=== PATIENT | female | born 1965 | race Caucasian/White ===

== ENCOUNTER 2016-09-22 05:53 | Day surgery (SDC) | payer BC ==
[2016-09-22] MEDS ORDERED: LACTATED RINGERS 1,000 ML IV ONE (06:57)
[2016-09-22] MEDS ORDERED: fentaNYL 250 MCG/5 ML VIAL IVP ONE (07:40)
[2016-09-22] MEDS ORDERED: MIDAZOLAM 2 MG/2 ML VIAL IVP ONE (07:40)
[2016-09-22] MEDS ORDERED: SIMETHICONE 40 MG/0.6 ML 30 ML BOTTLE PO ONE (08:00)
== END 2016-09-22 05:54 | disposition home or self-care (01) ==
PROC: 0DBN8ZX Excision of Sigmoid Colon, Via Natural or Artificial Opening Endoscopic, Diagnostic (ICD-10-PCS; principal; 2016-09-22 07:30)
DX: Z12.11 Encounter for screening for malignant neoplasm of colon (principal); K21.9 Gastro-esophageal reflux disease without esophagitis; K64.4 Residual hemorrhoidal skin tags; D12.5 Benign neoplasm of sigmoid colon; Z83.71 Family history of colonic polyps; F18.90 Inhalant use, unspecified, uncomplicated; Z82.49 Family history of ischemic heart disease and other diseases of the circulatory system; Z80.0 Family history of malignant neoplasm of digestive organs
CPT/HCPCS: 45385; J3010; J7120

== ENCOUNTER → 2017-04-03 | Outpatient (CLI) | payer BC ==
[2017-04-03 13:55] LABS: ALBUMIN/GLOBULIN RATIO 1.3 (1.0-2.2); BILIRUBIN,TOTAL 0.4 mg/dL (0.2-1.0); CALCIUM 9.3 mg/dL (8.5-10.3); CREATININE 0.7 mg/dL (0.4-1.0); TOTAL PROTEIN 7.2 g/dL (6.7-8.2)
[2017-04-03 14:05] LABS: BASOPHILS # (AUTO) 0.1 10^3/uL (0.0-0.1); EOSINOPHILS # (AUTO) 0.1 10^3/uL (0.0-0.7); EOSINOPHILS % (AUTO) 1.5 %; HCT - HEMATOCRIT 36.3 % (37.0-47.0); HGB - HEMOGLOBIN 12.1 g/dL (12.0-16.0); LYMPHOCYTES # (AUTO) 1.8 10^3/uL (1.5-3.5); MEAN CORPUSCULAR HEMOGLOBIN 25.9 pg (27.0-31.0); MEAN CORPUSCULAR HGB CONC 33.3 g/dL (32.0-36.0); MEAN CORPUSCULAR VOLUME 77.8 fL (81.0-99.0); MEAN PLATELET VOLUME 7.8 fL (7.9-10.8); MONOCYTES # (AUTO) 0.6 10^3/uL (0.0-1.0); MONOCYTES % (AUTO) 9.9 %; NEUTROPHILS # (AUTO) 3.8 10^3/uL (1.5-6.6); NEUTROPHILS % (AUTO) 59.6 %; RED BLOOD COUNT 4.67 10^6/uL (4.20-5.40); RED CELL DISTRIBUTION WIDTH 16.2 % (12.0-15.0); UNCORRECTED WHITE BLOOD COUNT 6.4 x10^3/uL; WHITE BLOOD COUNT 6.4 x10^3/uL (4.8-10.8)
== END ==
LOC: LAB.N 08:00
PROVIDERS: ATTEND Nurse Practitioner Gerontology
DX: R10.30 Lower abdominal pain, unspecified (principal)
CPT/HCPCS: 36415; 80053; 85025

== ENCOUNTER 2018-05-08 14:21 | Outpatient (CLI) | payer BC | END 2018-05-08 14:22 | disposition home or self-care (01) | LOC: RT.N 14:21 | PROVIDERS: ATTEND Nurse Practitioner Gerontology | DX: R07.89 Other chest pain (principal) | CPT/HCPCS: 93005 ==

== ENCOUNTER 2018-05-09 08:33 | Outpatient (CLI) | payer BC ==
[2018-05-09 12:54] LABS: BASOPHILS # (AUTO) 0.1 10^3/uL (0.0-0.1); BASOPHILS % (AUTO) 1.1 %; EOSINOPHILS # (AUTO) 0.1 10^3/uL (0.0-0.7); EOSINOPHILS % (AUTO) 1.5 %; HGB - HEMOGLOBIN 12.2 g/dL (12.0-16.0); LYMPHOCYTES # (AUTO) 1.4 10^3/uL (1.5-3.5); LYMPHOCYTES % (AUTO) 27.5 %; MEAN CORPUSCULAR HGB CONC 33.8 g/dL (32.0-36.0); MEAN CORPUSCULAR VOLUME 79.9 fL (81.0-99.0); MEAN PLATELET VOLUME 7.4 fL (7.9-10.8); MONOCYTES # (AUTO) 0.5 10^3/uL (0.0-1.0); NEUTROPHILS # (AUTO) 3.2 10^3/uL (1.5-6.6); NEUTROPHILS % (AUTO) 60.9 %; PLT - PLATELET COUNT 326 10^3/uL (130-450); RED BLOOD COUNT 4.51 10^6/uL (4.20-5.40); WHITE BLOOD COUNT 5.3 x10^3/uL (4.8-10.8)
[2018-05-09 13:15] LABS: ALBUMIN 3.9 g/dL (3.2-5.5); ALBUMIN/GLOBULIN RATIO 1.2 (1.0-2.2); ALKALINE PHOSPHATASE 48 IU/L (42-121); ALT ALANINE AMINOTRANSFERASE 18 IU/L (10-60); AST ASPARTATE AMINOTRANSFERASE 19 IU/L (10-42); BILIRUBIN,TOTAL 0.8 mg/dL (0.2-1.0); BUN - BLOOD UREA NITROGEN 12 mg/dL (6-20); CHOL/HDL RATIO 3.3 (<4.4); CHOLESTEROL 247 mg/dL; CREATININE 0.9 mg/dL (0.4-1.0); GFR - MDRD 65 (>89); HDL CHOLESTEROL 75 mg/dL; LDL CHOLESTEROL,CALCULATED 153 mg/dL; TOTAL PROTEIN 7.2 g/dL (6.7-8.2); VLDL CHOLESTEROL 19 mg/dL
[2018-05-09 14:58] LABS: CALCIUM 9.1 mg/dL (8.5-10.3); CARBON DIOXIDE - CO2 27 mmol/L (21-32); CHLORIDE 102 mmol/L (101-111); GLUCOSE 105 mg/dL (70-100); SODIUM 135 mmol/L (135-145)
== END 2018-05-09 08:34 | disposition home or self-care (01) ==
LOC: LAB.N 08:33
PROVIDERS: ATTEND Nurse Practitioner Gerontology
DX: I10 Essential (primary) hypertension (principal); E78.5 Hyperlipidemia, unspecified; E66.9 Obesity, unspecified
CPT/HCPCS: 36415; 80053; 80061; 83721; 85025

== ENCOUNTER 2018-05-22 08:21 | Outpatient (CLI) | payer BC ==
--- NOTE | 2018-05-24 11:59 | Mammography Report ---
Reason: SCREENING MAMMO Procedure Date: 05/22/2018 Accession Number: [id number] / [id number] Procedure: MGN - Screening Mammo Dig Bilat CPT Code: FULL RESULT: EXAM: Screening Mammo Dig Bilat DATE: 05/22/2018 8:43 AM CLINICAL HISTORY: 52-year-old female for screening. TECHNIQUE: Bilateral CC and MLO views were obtained. COMPARISON: 07/01/2016, 04/12/2010 04/17/2008. FINDINGS: The breasts demonstrate heterogeneously dense fibroglandular parenchyma bilaterally. In the upper right central breast approximately 8 cm deep to the nipple is an increasing focal asymmetry with associated clustered calcifications which requires additional spot imaging preferably with 3-D technique and ultrasound evaluation. Coarse typically benign calcifications are identified. No left breast suspicious masses, clustered microcalcifications, or regions of architectural distortion are identified. IMPRESSION: Incomplete examination RECOMMENDATION: Additional evaluation of the focal right breast finding in the upper posterior breast with spot tomographic technique as well as ultrasound. BIRADS CATEGORY 0: Incomplete examination STANDARD QUALIFYING STATEMENTS: 1. This examination was reviewed with the aid of Computer-Aided Detection (CAD). 2. A negative or benign imaging report should not delay biopsy if clinically suspicious findings are present. Consider surgical consultation if warrented. More than 5% of cancers are not identified by imaging. 3. Dense breasts may obscure an underlying neoplasm. 4. This examination was reviewed without the aid of 3D breast imaging (tomosynthesis).
== END 2018-05-22 08:22 | disposition home or self-care (01) ==
LOC: DI.N 08:21
PROVIDERS: ATTEND Nurse Practitioner Gerontology
DX: Z12.39 Encounter for other screening for malignant neoplasm of breast (principal); R92.8 Other abnormal and inconclusive findings on diagnostic imaging of breast; R92.1 Mammographic calcification found on diagnostic imaging of breast
CPT/HCPCS: 77067

== ENCOUNTER 2018-06-12 13:06 | Outpatient (CLI) | payer BC ==
--- NOTE | 2018-06-12 15:06 | Mammography Report ---
Reason: ABN MAMMO - RT SPEC VIEWS Procedure Date: 06/12/2018 Accession Number: [id number] / [id number] Procedure: VINCE - Diag Special Views Dig RT CPT Code: FULL RESULT: EXAM: Diag Special Views Dig RT DATE: 06/12/2018 2:22 PM CLINICAL HISTORY: 52-year-old female recalled from screening for increasing focal asymmetry associated with previously seen clustered calcifications in the right upper central breast. TECHNIQUE: Right CC, MLO and MLO views were obtained in 2-D and 3-D technique with additional spot magnified CC and spot magnified MLO views of the right breast. COMPARISON: 05/22/2018, 07/01/2016, 04/14/2010. FINDINGS: The breasts demonstrate heterogeneously dense fibroglandular parenchyma bilaterally. The clustered calcifications are stable dating back to 2015. The increasing focal asymmetry resolves with spot magnification and 3-D technique and is identified as overlapping normal breast tissue. No suspicious calcifications, architectural distortion or masses are identified. IMPRESSION: Benign findings RECOMMENDATION: Recommend routine annual Screening mammography unless otherwise clinically indicated. BIRADS CATEGORY 2: Benign findings STANDARD QUALIFYING STATEMENTS: 1. This examination was not reviewed with the aid of Computer-Aided Detection (CAD). 2. A negative or benign imaging report should not delay biopsy if clinically suspicious findings are present. Consider surgical consultation if warrented. More than 5% of cancers are not identified by imaging. 3. Dense breasts may obscure an underlying neoplasm. 4. This examination was reviewed with the aid of 3D imaging (tomography).
== END 2018-06-12 13:07 | disposition home or self-care (01) ==
LOC: DI 13:06
PROVIDERS: ATTEND Nurse Practitioner Gerontology
DX: R92.8 Other abnormal and inconclusive findings on diagnostic imaging of breast (principal)

== ENCOUNTER 2018-06-21 07:12 | Outpatient (CLI) | payer BC ==
--- NOTE | 2018-06-21 11:21 | Ultrasound Report ---
Reason: ABDOMINAL PAIN LUQ Procedure Date: 06/21/2018 Accession Number: [id number] / [id number] Procedure: US - Abdomen Limited CPT Code: FULL RESULT: EXAM: ABDOMEN ULTRASOUND LIMITED, LEFT UPPER QUADRANT EXAM DATE: 06/21/2018 07:37 AM. CLINICAL HISTORY: Abdominal pain in left upper quadrant. COMPARISON: None. TECHNIQUE: Real-time scanning was performed with static images obtained. FINDINGS: The spleen measures up to 10.0 cm in maximal dimension, within normal limits. Echotexture is normal with no mass detected. Color Doppler reveals normal blood flow in the splenic hilar region. Other: Left kidney measures up to 11.9 cm in maximum sagittal dimension with no detected mass, calculi or hydronephrosis. Parenchymal flow is grossly preserved by color Doppler. IMPRESSION: Normal appearance of the spleen and left kidney. RADIA
== END 2018-06-21 07:13 | disposition home or self-care (01) ==
LOC: DI 07:12
PROVIDERS: ATTEND Nurse Practitioner Gerontology
DX: R10.12 Left upper quadrant pain (principal)
CPT/HCPCS: 76705

== ENCOUNTER 2018-11-07 11:54 | Outpatient (CLI) | payer BC ==
--- NOTE | 2018-11-07 14:38 | XRAY Report ---
Reason: KNEE PAIN,LEFT Procedure Date: 11/07/2018 Accession Number: [id number] / [id number] Procedure: XRN - Knee 3 View LT CPT Code: FULL RESULT: EXAM: LEFT KNEE RADIOGRAPHY EXAM DATE: 11/07/2018 12:13 PM. CLINICAL HISTORY: KNEE Pain, left. COMPARISON: None. TECHNIQUE: 3 views. FINDINGS: Bones: No acute abnormality. Minimal patellofemoral osteoarthritis. Joints: Normal. No effusion. No subluxations. Soft Tissues: Normal. No soft tissue swelling. IMPRESSION: 1. No acute osseous abnormality or joint effusion. 2. Minimal patellofemoral osteoarthritis. RADIA
== END 2018-11-07 11:55 | disposition home or self-care (01) ==
LOC: DI.N 11:54
PROVIDERS: ATTEND Family Medicine
DX: M17.11 Unilateral primary osteoarthritis, right knee (principal)

== ENCOUNTER 2019-10-02 16:42 | Outpatient (CLI) | payer BC ==
--- NOTE | 2019-10-03 10:21 | XRAY Report ---
Reason: OSTEOARTHRITIS Procedure Date: 10/02/2019 Accession Number: [id number] / [id number] Procedure: XR - Knee 2 View LT CPT Code: Final Report FULL RESULT: EXAM: LEFT KNEE RADIOGRAPHY EXAM DATE: 10/02/2019 05:01 PM. CLINICAL HISTORY: OSTEOARTHRITIS. COMPARISON: KNEE 3 VIEW LT 11/07/2018 12:14 PM. TECHNIQUE: 2 views. FINDINGS: Bones: Normal. No fractures or bone lesions. Joints: Normal. No effusion. No subluxations. Soft Tissues: Normal. No soft tissue swelling. IMPRESSION: Normal knee radiography. RADIA
== END 2019-10-02 16:43 | disposition home or self-care (01) ==
LOC: DI 16:42
PROVIDERS: ATTEND Nurse Practitioner Gerontology
DX: M19.90 Unspecified osteoarthritis, unspecified site (principal)

== ENCOUNTER 2021-12-08 08:00 | Outpatient (CLI) | payer BC | END 2021-12-09 20:37 | disposition home or self-care (01) | LOC: LAB.N 08:00 | PROVIDERS: ATTEND Registered Nurse | DX: R05.9 Cough, unspecified (principal); R07.0 Pain in throat; Z20.822 Contact with and (suspected) exposure to COVID-19 ==

== ENCOUNTER 2022-05-04 12:57 | Outpatient (CLI) | payer BC ==
--- NOTE | 2022-05-05 09:49 | Mammography Report ---
BILATERAL DIGITAL SCREENING MAMMOGRAM 3D/2D: 05/04/2022 CLINICAL: Routine screening. Comparison is made to exams dated: 02/10/2020 mammogram, 06/12/2018 mammogram, 05/22/2018 mammogram, 07/01/2016 mammogram, and 04/14/2010 mammogram - [facility]. There are scattered areas of fibroglandular density in both breasts (category b / 25%-50% glandular t issue). There is a possible new 0.4 cm oval equal density asymmetry in the left breast posterior depth inferi or region seen on the mediolateral oblique view only. No other significant masses, calcifications, or other findings are seen in either breast. IMPRESSION: INCOMPLETE: NEEDS ADDITIONAL IMAGING EVALUATION The possible new 0.4 cm oval equal density asymmetry in the left breast resembles a cyst and is indet erminate. Additional views with possible ultrasound are recommended. Based on the Tyrer Cuzick model (a risk assessment model) the patients lifetime risk is 9.1% and her 10 year risk is 3.2%. According to the ACR, ACS, and NCCN guidelines, an annual breast MRI exam santiago g with mammogram is recommended if the patients lifetime risk is 20% or greater. This exam was interpreted at Station ID: [id number]. NOTE: For mammograms, a report in lay terms will be sent to the patient. Approximately 15% of breast malignancies will not be visualized mammographically. In the management of a palpable breast mass, a negative mammogram must not discourage biopsy of a clinically suspicious lesion. Electronically Signed By: Lanre Bhatia M.D. aty/:05/05/2022 07:36:17 ACR BI-RADS Category 0: Incomplete 3340F PARENCHYMAL PATTERN: (A) - The breast(s) demonstrate(s) scattered fibroglandular densities. BI-RADS CATEGORY: (0) - 0 Mammo and [place] [id number] Immediate follow-up LATERALITY: (L)
== END 2022-05-04 12:58 | disposition home or self-care (01) ==
LOC: DI.N 12:57
PROVIDERS: ATTEND Nurse Practitioner Family
DX: Z12.31 Encounter for screening mammogram for malignant neoplasm of breast (principal)

== ENCOUNTER 2022-05-27 08:04 | Outpatient (CLI) | payer BC ==
--- NOTE | 2022-05-30 09:44 | Ultrasound Report ---
LIMITED ULTRASOUND OF LEFT BREAST: 05/27/2022 CLINICAL: Patient returns today to evaluate a focal asymmetry in the left breast. Comparison is made to exams dated: 05/27/2022 mammogram, 05/04/2022 mammogram, 02/10/2020 mammogram, 08/12/2017 mammogram, and 05/22/2018 mammogram - [facility]. Color flow and real-time ultrasound of the left breast 11-12 o'clock region were performed. Bustos sc maik images of the real-time examination were reviewed. There is a benign 0.4 cm x 0.4 cm x 0.3 cm oval cyst with a smooth internal wall in the left breast a t 12 o'clock middle depth 5 cm from the nipple. This oval cyst displays posterior acoustic enhanceme nt. This correlates with mammography findings. Adjacent to this cyst, there are multiple additiona l cysts. IMPRESSION: BENIGN There is no sonographic evidence of malignancy. The 0.4 cm x 0.4 cm x 0.3 cm oval cyst in the left breast is benign. A 1 year screening mammogram is recommended. This exam was interpreted at Station ID: [id number]. Electronically Signed By: Lj carl/adry:05/27/2022 15:42:59 Ultrasound BI-RADS: 2 Benign BI-RADS CATEGORY: (2) - 2 RECOMMENDATION: (ANNUAL) - Recommend routine annual screening mammography. [id number] 1 year screening LATERALITY: (B)
--- NOTE | 2022-05-30 09:44 | Mammography Report ---
UNILATERAL LEFT DIGITAL DIAGNOSTIC MAMMOGRAM 3D/2D WITH SPOT COMPRESSION: 05/27/2022 CLINICAL: Patient returns today to evaluate an asymmetry in the left breast. Comparison is made to exams dated: 05/04/2022 mammogram, 02/10/2020 mammogram, 06/12/2018 mammogram, and 05/22/2018 mammogram - [facility]. There are scattered areas of fibroglandular density in the left breast (category b / 25%-50% glandula r tissue). There is an oval focal asymmetry in the left breast at 12 o'clock middle depth. This correlates as a n incidental finding. Additional small oval focal asymmetries are seen that have a waxing and wanin g appearance when compared to prior mammograms, most likely representing cysts. The possible oval asymmetry in the left breast posterior depth inferior region seen on the mediolater al oblique view only is not reproduced and may have represented a cyst that has now resolved. No other significant masses or calcifications are seen in the breast. IMPRESSION: INCOMPLETE: NEEDS ADDITIONAL IMAGING EVALUATION The oval focal asymmetry in the left breast at 12 o'clock middle depth resembles a cyst and is indete rminate. An ultrasound is recommended. Based on the Tyrer Cuzick model (a risk assessment model) the patients lifetime risk is 9.1% and her 10 year risk is 3.2%. According to the ACR, ACS, and NCCN guidelines, an annual breast MRI exam santiago g with mammogram is recommended if the patients lifetime risk is 20% or greater. This exam was interpreted at Station ID: [id number]. NOTE: For mammograms, a report in lay terms will be sent to the patient. Approximately 15% of breast malignancies will not be visualized mammographically. In the management of a palpable breast mass, a negative mammogram must not discourage biopsy of a clinically suspicious lesion. Electronically Signed By: Lj Do M.D. ar/:05/27/2022 15:39:58 ACR BI-RADS Category 0: Incomplete 3340F PARENCHYMAL PATTERN: (A) - The breast(s) demonstrate(s) scattered fibroglandular densities. BI-RADS CATEGORY: (0) - 0 Ultrasound [id number] Immediate follow-up LATERALITY: (L)
== END 2022-05-27 08:05 | disposition home or self-care (01) ==
LOC: DI 08:04
PROVIDERS: ATTEND Nurse Practitioner Family
DX: N60.02 Solitary cyst of left breast (principal)